=== PATIENT | female | born 1935 | race Caucasian/White ===

== ENCOUNTER 2016-09-13 18:44 | Inpatient (IN) | payer BC ==
--- NOTE | ~2016-09-13 | DS ---
Discharge Summary [facility] [address] [place]. [address] NAME: RUCHI CASTILLO : 37 STATUS : DIS IN PAT#: [id number] AGE: 80 ADM/REG DATE : 09/13/16 MR#: [id number] REPORT SERV DATE: 09/28/16 DICTATED BY: DIOGO WALL DATE: 09/27/16 REPORT STATUS : Draft TRANSCRIBED BY: MODL DATE: 09/27/16 ADMISSION DATE: 09/13/2016 DISCHARGE DATE: 09/27/2016 DISCHARGE DIAGNOSES: 1. Advanced dementia. 2. Generalized weakness. 3. Frequent falls at home. 4. Failure to thrive. 5. A recent T12 compression fracture as a result of one of the falls prior to hospitalization. CONSULTS: Dr. Lamar of Spine Surgery. PROCEDURES: None. HOSPITAL COURSE: This is a 80-year-old lady with a history of advanced dementia who was admitted to the hospital after she sustained multiple frequent falls related to generalized weakness. Upon admission, Spine Surgery was consulted who did not see any benefit in operation, and the patient was a poor candidate overall given her advanced dementia and poor functional status. Also, the patient really did not have any acute pain that necessitated further treatment of the T12 compression fracture. With her advanced dementia as well as generalized weakness, the patient was evaluated by Physical Therapy, and it was recommended the patient have two-person assist. Unfortunately, the patient did not have that kind of support at home, and the patient needed to be transferred to a alf facility. It took several days, but the patient was eventually accepted at [facility] where she will be discharged to continue rehab and to be continued to care for. Of note, the patient does not have any children and the patient's POA is the patient's niece. Otherwise, the patient's hospital course was uncomplicated, and the patient remained hemodynamically stable throughout the entire hospital stay. DISCHARGE MEDICATIONS: No changes. DISPOSITION: To [facility]. FOLLOWUP: Please follow up with PCP in the next two to four weeks. TIME SPENT: A total of 25 minutes was spent in coordinating this patient's discharge today. ELGIN/AME Diogo Wall MD Discharge Summary [address] [place]. [address] NAME: RUCHI CASTILLO : 37 STATUS : DIS IN PAT#: [id number] AGE: 80 ADM/REG DATE : 09/13/16 MR#: [id number] REPORT SERV DATE: 09/28/16 DICTATED BY: DIOGO WALL DATE: 09/27/16 REPORT STATUS : Draft TRANSCRIBED BY: MODRosa DATE: 09/27/16 / [id number] CC: MD MELVI Lord VICKI L
--- NOTE | ~2016-09-13 | CN ---
Consultation Report [facility] [address] [place]. [address] NAME: RUCHI CASTILLO : 37 STATUS : ADM Byron PAT#: [id number] AGE: 80 ADM/REG DATE : 09/13/16 MR#: [id number] REPORT SERV DATE: 09/14/16 DICTATED BY: JOHN ANAYA DATE: 09/14/16 REPORT STATUS : Draft TRANSCRIBED BY: MODL DATE: 09/14/16 CONSULTATION DATE OF CONSULTATION: REFERRING PHYSICIAN: Nikolay Joe M.D. CHIEF COMPLAINT: Back pain. HISTORY OF PRESENT ILLNESS: This is a 80-year-old female, who has significant dementia and behavioral abnormalities for which I have been asked to see related to back pain. The history is completely taken from the H and P in the chart from Dr. Nikolay Joe. He had obtained some history from the family including the daughter. I have no family in the room to be able to take history. Because of her history of dimension and behavior problems, her history would not be reliable, thus, I am making all my determinations based on the information available and the chart. The chart has been reviewed in its entirety. It should also be noted that there are no x-rays of any kind, plain x-ray or any advanced imaging such as the CT or MRI to review. From the H and P, there was a history of a fall sometime between possibly 08/29/2016 or 08/31/2016, in which the patient fell backwards. The patient was seen at [facility] in [place] and the ER was told there was a T12 compression fracture, and was told to use a brace, and ultimately, the patient has not had a brace. The patient has had increased amounts of pain that is at least according to history in the chart. I am not able to ascertain the functionality of the patient just from standing, walking, and activity levels. The chart again has been reviewed including the H and P, see that for detail. ASSESSMENT: History of a T12 compression fracture. RECOMMENDATIONS: Based on all the information I have available to me, physical exam is not completed as she would not participate at all. She has been noted to spontaneously move all four extremities, but she gets very agitated with any attempted to try to check reflexes. Thus, essentially no exam was performed. At this time, there is a history of T12 compression fracture. If this is found to be true on plain x-ray, and/or CT/MRI, then the patient could be a possible candidate for a kyphoplasty under local anesthetic, but certainly with her history of dementia and behavior problems, she is not a good candidate for general anesthesia, and the procedure as I would normally perform. Thus, I am not recommending any surgery at this time. I will sign off and ask the interventional Radiology Department to evaluate and see if they feel that she is a reasonable candidate for a local kyphoplasty. Consultation Report [facility] [address] [place]. [address] NAME: RUCHI CASTILLO : 37 STATUS : ADM Byron PAT#: [id number] AGE: 80 ADM/REG DATE : 09/13/16 MR#: [id number] REPORT SERV DATE: 09/14/16 DICTATED BY: JOHN ANAYA DATE: 09/14/16 REPORT STATUS : Draft TRANSCRIBED BY: AME DATE: 09/14/16 /AME John Anaya D.O. / [id number] CC: MD MELVI Lord VICKI L
--- NOTE | ~2016-09-13 | IDS ---
Interim Discharge Summary [facility] [address] [place]. [address] NAME: RUCHI CASTILLO : 39 STATUS : ADM IN [facility]#: [id number] AGE: 80 ADM/REG DATE : 09/13/16 MR#: [id number] REPORT SERV DATE: 09/23/16 DICTATED BY: JACKIE KAPLAN DATE: 09/23/16 REPORT STATUS : Draft TRANSCRIBED BY: MODL DATE: 09/23/16 ADMISSION DATE: 09/13/2016 DISCHARGE DATE: CURRENT HOSPITAL DIAGNOSES: 1. Dementia, advanced. 2. Compression fracture. 3. History of urinary tract infections. CONSULTATIONS: Dr. Lamar. PROCEDURES: None. CURRENT PHYSICAL FINDINGS AND HISTORY OF PRESENT ILLNESS: Please see initial H and P by Dr. Joe. In brief, the patient was having advancing dementia problems at home. Complaints of pain and was brought in for evaluation. Initial vital signs showed a blood pressure of 105/76. The patient has not had any fevers during her hospital stay. She presented with 97.9. She has had no tachycardia or hypoxia. LABORATORY DATA: Initial lab work showed a potassium of 3.4, which was corrected, creatinine of 137, which was corrected. A white count of 11, which corrected. No significant anemia and a normal urinalysis. The patient was admitted. Home medications were reviewed. Reasonable pain medications were given. Orthopedic consultation was requested. Her hydrochlorothiazide was held. Some mild IV fluids were given initially for the mild renal insufficiency, and Dr. Bowman initially was her physician. She was having urinary retention, so Mukherjee was placed. Her IV fluids were held. Case management was consulted, some mild sedation was required. I took over care on 09/17/2016. Ativan was discontinued. Catheter was discontinued with bladder scans followed. She did get several interventions for bowel movement, which was positive. Case management attempted to find her placement is currently pending at this time. PT continues to work with her. However, she is requiring two people assist. I did discuss her home situation with her caregivers and they do not feel that they can safely manage her at home with dementia and physical impairments. Placement is currently pending. We will check a.m. lab. Continue to monitor her bowel and bladder output and monitor her blood pressure. ÁLVAROF/NAHUNL Jackie Kaplan M.D. / [id number] CC: Jackie Kaplan M.D. Interim Discharge Summary [address] [address] NAME: RUCHI CASTILLO : 37 STATUS : ADM IN PAT#: [id number] AGE: 80 ADM/REG DATE : 09/13/16 MR#: [id number] REPORT SERV DATE: 09/23/16 DICTATED BY: JACKIE KAPLAN DATE: 09/23/16 REPORT STATUS : Draft TRANSCRIBED BY: MODL DATE: 09/23/16 Brianne Granda
--- NOTE | ~2016-09-13 | HP ---
History And Physical [address] [place]. [address] NAME: RUCHI CASTILLO : 37 STATUS : ADM Byron PAT#: [id number] AGE: 80 ADM/REG DATE : 09/13/16 MR#: [id number] REPORT SERV DATE: 09/14/16 DICTATED BY: LYDIA MYLES DATE: 09/14/16 REPORT STATUS : Draft TRANSCRIBED BY: MODL DATE: 09/14/16 DATE OF ADMISSION: 09/13/2016 CHIEF COMPLAINT: A 80-year-old female presenting with recent T12 compression fracture, increasing pain, and progression of dementia with behavioral problems. HISTORY OF PRESENTING ILLNESS: The patient's history was obtained through an interview with the patient and her daughter. Around the beginning of the month, perhaps 08/29/2016 or 08/31/2016, the patient had a fall. She simply lost her balance and collapsed to the ground hitting her backside and back. She went to [facility] and was diagnosed with T12 compression fracture. The patient was advised to be placed in a back brace and try physical therapy, and discharged from the emergency department. Despite this recommendation, the patient has been unable to tolerate a back brace because of dementia and agitation, and she has not participated with physical therapy. In fact, her pain has only increased over these last few weeks. She also describes pain now radiating to her stomach, chest, knees, but it is thought that all this pain emanates from her initial fracture to her spine. It finally got to the point today where she could not even walk. She has had increasing dementia issues with confusion, agitation, and combativeness. She has had near syncope at times and apparently lightheadedness. A very poor appetite now. No nausea or vomiting. She has been grimacing as if she is in pain, but is unable to localize or describe quality or severity of pain. No shortness of breath, but does have chronic cough. No fevers or chills. No nausea or vomiting. REVIEW OF SYSTEMS: Otherwise, a 14-point review of systems was obtained and was negative. PAST MEDICAL HISTORY: 1. Alzheimer's dementia. 2. Hypertension. 3. Urinary tract infections. 4. T12 compression fracture. 5. Gastroesophageal reflux disorder. 6. Anemia. History And Physical [address] [place]. [address] NAME: RUCHI CASTILLO : 37 STATUS : ADM Byron PAT#: [id number] AGE: 80 ADM/REG DATE : 09/13/16 MR#: [id number] REPORT SERV DATE: 09/14/16 DICTATED BY: LYDIA MYLES DATE: 09/14/16 REPORT STATUS : Draft TRANSCRIBED BY: MODRosa DATE: 09/14/16 7. Shingles. 8. Possible cardiac disease. 9. Elevated cholesterol. PAST SURGICAL HISTORY: Right hip replacement and hysterectomy. ALLERGIES: NO KNOWN DRUG ALLERGIES. SOCIAL HISTORY: No tobacco abuse. No alcohol abuse. The last 10 months has been living with her daughter. Has only one daughter. She has been a for about 10 years. Lives in [place], [place]. FAMILY HISTORY: Mother and sister with Alzheimer's dementia. Father with coronary artery disease. Brother with throat cancer. Brother with leukemia. CURRENT MEDICATIONS: Include Fosamax weekly, Lipitor 40 mg p.o. daily, calcium and vitamin D, Aricept 10 mg p.o. daily, Lexapro 10 mg p.o. daily, iron supplement, hydrochlorothiazide 25 mg p.o. daily, melatonin 10 mg p.o. q.h.s., Namenda 10 mg p.o. b.i.d., omeprazole 40 mg p.o. daily, Seroquel 25 mg p.o. daily. PHYSICAL EXAMINATION: VITAL SIGNS: Temperature 97.9, pulse 87, blood pressure 105/76, respiratory rate 16, O2 saturation 95% on room air. GENERAL: An ill-appearing female, quite agitated and uncontrolled in her dementia. She is irritable and sometimes combative here in the emergency department. HEENT: Pupils equal, round, and reactive to light. No conjunctival pallor. No scleral icterus. Nares are patent. Oropharynx is clear of obstruction. Dry mucous membranes. NECK: Trachea midline. No thyromegaly. LYMPH: No cervical lymphadenopathy. No supraclavicular lymphadenopathy. RESPIRATORY: Clear to auscultation at bases. No wheezes, rales, or rhonchi. Normal respiratory effort. CARDIOVASCULAR: Regular rate and rhythm. No murmurs, rubs, or gallops. No extremity edema is appreciated. ABDOMEN: Soft, nontender, nondistended. Normal bowel sounds auscultated throughout. No organomegaly. DERMATOLOGICAL: Warm and dry extremities. No pallor, no cyanosis. PSYCHIATRIC: Animated affect. Combative and irritable. Disoriented x3, alert though. LABORATORY DATA: White blood cell count 11, hemoglobin 14, hematocrit 42, platelets 218. Sodium 138, potassium 3.4, chloride 97, bicarb 33, BUN 21, creatinine 1.37 from baseline creatinine of 0.87, glucose 109. Urinalysis shows no evidence of infection, but 8 hyaline casts. Liver enzymes within normal limits. Troponin negative. STUDIES: 1. Chest x-ray by my own evaluation shows no acute cardiopulmonary process. 2. EKG by my own evaluation shows sinus rhythm, left atrial abnormality, left ventricular hypertrophy. History And Physical [address] [address] NAME: RUCHI CASTILLO : 37 STATUS : ADM Byron PAT#: [id number] AGE: 80 ADM/REG DATE : 09/13/16 MR#: [id number] REPORT SERV DATE: 09/14/16 DICTATED BY: LYDIA MYLES DATE: 09/14/16 REPORT STATUS : Draft TRANSCRIBED BY: MODRosa DATE: 09/14/16 ASSESSMENT AND PLAN: 1. T12 compression fracture. Recheck an x-ray of the spine. Obtain Orthopedic consult to determine if the patient is appropriate for kyphoplasty? 2. Dementia with behavioral problems. Continue home medications. Provide a sitter. Obtain a Case Management evaluation, as the patient may need to disposition to rehab or penitentiary facility? 3. Acute kidney injury. Place on IV fluids. Hold hydrochlorothiazide. KPL/MODL Lydia Myles M.D. / [id number] CC: MD JANET Lord
[2016-09-14 00:59] LABS: BASOPHILS 0.2 %; BASOPHILS ABSOLUTE 0.02 10/3/uL (0.0-0.16); EOSINOPHILS 1.4 %; EOSINOPHILS ABSOLUTE 0.15 10/3/uL (0.0-0.53); ER CBC TAT 0 Hrs 05 Mins; HEMATOCRIT 42.4 % (36.0-48.0); HEMOGLOBIN 14.4 g/dL (12.0-16.0); IMMATURE GRANULOCYTES 0.4 %; IMMATURE GRANULOCYTES ABSOLUTE 0.04 10/3/uL (0.0-0.11); LYMPHOCYTES 17.6 %; LYMPHOCYTES ABSOLUTE 1.93 10/3/uL (0.67-4.30); MANUAL DIFF NO %; MEAN CORPUSCULAR VOLUME 97.2 fL (80-100); MEAN PLATELET VOLUME 11.9 fL (9.2-13.0); MONOCYTES 8.3 %; MONOCYTES ABSOLUTE 0.91 10/3/uL (0.21-1.20); NEUTROPHILS 72.1 %; NEUTROPHILS ABSOLUTE 7.93 10/3/uL (2.02-8.40); PLATELET COUNT 218 10/3/uL (150-400); RBC DISTRIBUTION WIDTH 13.6 % (12.0-16.0); RED CELL COUNT 4.36 10/6/uL (4.0-5.6)
[2016-09-14 01:19] LABS: ALBUMIN 3.1 G/DL (3.5-5.0); CALCIUM, SERUM 8.5 MG/DL (8.5-10.4); CO2 (CARBON DIOXIDE) 33 MMOL/L (24-34); POTASSIUM, SERUM 3.4 MMOL/L (3.5-5.3); SGPT(ALT) 21 U/L (5-65); TOTAL BILIRUBIN 0.5 MG/DL (0-1.2); TROPONIN I <0.02 NG/ML (<0.05)
[2016-09-14 01:24] LABS: A/G RATIO 0.8 (0.7-1.9); ALKALINE PHOSPHATASE 167 U/L (45-117); BUN (BLOOD UREA NITROGEN) 21 MG/DL (6-23); CHLORIDE, SERUM 97 MMOL/L (96-112); CREATININE 1.37 MG/DL (0.55-1.02); GFR AFRICAN AMERICAN 43 ML/MIN (>=60); GFR NON AFRICAN AMERICAN 37 ML/MIN (>=60); GLOBULIN 3.9 G/DL (2.5-4.1); GLUCOSE, SERUM 109 MG/DL (60-99); SODIUM, SERUM 138 MMOL/L (135-148)
[2016-09-14 01:25] LABS: SGOT(AST) 26 U/L (5-40)
[2016-09-14 03:12] LABS: ASCORBIC ACID (UR NOT ORDER) NEG (NEG); BILIRUBIN, URINE NEGATIVE (NEG); ER URINALYSIS TAT 0 Hrs 00 Mins; KETONE, URINE NEGATIVE (NEG); LEUKOCYTE ESTERASE(NOT OR NEG (NEG); NITRITE (URINE) NEG (NEG); WBC (NOT ORDERED) (RFLEX) 1 (0-5)
[2016-09-14] MEDS ORDERED: HYDROCHLOROT25 MG PO (03:30)
[2016-09-14] MEDS ORDERED: FOSAMAX70 MG PO (03:30)
[2016-09-14] MEDS ORDERED: PRILOSEC40 MG PO (03:30)
[2016-09-14] MEDS ORDERED: ARICEPT10 PO (03:30)
[2016-09-14] MEDS ORDERED: LIPITOR40 PO (03:30)
[2016-09-14] MEDS ORDERED: FERROUS SULF325 M1 PO (03:30)
[2016-09-14] MEDS ORDERED: MELATONIN10 M2 PO (03:31)
[2016-09-14] MEDS ORDERED: LEXAPRO10 PO (03:31)
[2016-09-14] MEDS ORDERED: SEROQUEL25 PO (03:31)
[2016-09-14] MEDS ORDERED: NAMENDA10 MG PO (03:31)
[2016-09-14] MEDS ORDERED: CALTRA600D PO (03:32)
[2016-09-14 12:10] LABS: ALBUMIN 2.7 G/DL (3.5-5.0); BUN (BLOOD UREA NITROGEN) 20 MG/DL (6-23); CALCIUM, SERUM 7.7 MG/DL (8.5-10.4); CHLORIDE, SERUM 101 MMOL/L (96-112); CO2 (CARBON DIOXIDE) 31 MMOL/L (24-34); GLUCOSE, SERUM 99 MG/DL (60-99); POTASSIUM, SERUM 3.4 MMOL/L (3.5-5.3); SGOT(AST) 18 U/L (5-40); SGPT(ALT) 16 U/L (5-65); SODIUM, SERUM 139 MMOL/L (135-148); TOTAL BILIRUBIN 0.8 MG/DL (0-1.2); TOTAL PROTEIN 5.8 G/DL (6.0-8.5)
[2016-09-14 12:11] LABS: A/G RATIO 0.9 (0.7-1.9); ALKALINE PHOSPHATASE 147 U/L (45-117); CREATININE 0.85 MG/DL (0.55-1.02); GFR AFRICAN AMERICAN 76 ML/MIN (>=60); GFR NON AFRICAN AMERICAN 66 ML/MIN (>=60); GLOBULIN 3.1 G/DL (2.5-4.1)
[2016-09-18 06:02] LABS: BASOPHILS 0.4 %; BASOPHILS ABSOLUTE 0.03 10/3/uL (0.0-0.16); EOSINOPHILS 3.8 %; EOSINOPHILS ABSOLUTE 0.32 10/3/uL (0.0-0.53); HEMATOCRIT 43.2 % (36.0-48.0); IMMATURE GRANULOCYTES 0.1 %; IMMATURE GRANULOCYTES ABSOLUTE 0.01 10/3/uL (0.0-0.11); LYMPHOCYTES 25.5 %; LYMPHOCYTES ABSOLUTE 2.12 10/3/uL (0.67-4.30); MANUAL DIFF NO %; MEAN CORPUS HGB CONC 32.4 g/dL (32.0-36.0); MEAN CORPUSCULAR HEMOGLOB 32.9 pg (26.0-34.0); MEAN CORPUSCULAR VOLUME 101.4 fL (80-100); MEAN PLATELET VOLUME 11.4 fL (9.2-13.0); MONOCYTES 7.1 %; MONOCYTES ABSOLUTE 0.59 10/3/uL (0.21-1.20); NEUTROPHILS 63.1 %; NEUTROPHILS ABSOLUTE 5.26 10/3/uL (2.02-8.40); PLATELET COUNT 180 10/3/uL (150-400); RBC DISTRIBUTION WIDTH 13.3 % (12.0-16.0); RED CELL COUNT 4.26 10/6/uL (4.0-5.6); WHITE BLOOD CELLS 8.3 10/3/uL (4.5-10.5)
[2016-09-18 06:19] LABS: BUN (BLOOD UREA NITROGEN) 20 MG/DL (6-23); CALCIUM, SERUM 8.1 MG/DL (8.5-10.4); CHLORIDE, SERUM 101 MMOL/L (96-112); CO2 (CARBON DIOXIDE) 30 MMOL/L (24-34); CREATININE 0.73 MG/DL (0.55-1.02); GFR AFRICAN AMERICAN 91 ML/MIN (>=60); GFR NON AFRICAN AMERICAN 79 ML/MIN (>=60); GLUCOSE, SERUM 86 MG/DL (60-99); SODIUM, SERUM 140 MMOL/L (135-148)
[2016-09-18 06:20] LABS: POTASSIUM, SERUM 4.5 MMOL/L (3.5-5.3)
[2016-09-24 05:28] LABS: BASOPHILS 0.3 %; BASOPHILS ABSOLUTE 0.02 10/3/uL (0.0-0.16); EOSINOPHILS 5.3 %; EOSINOPHILS ABSOLUTE 0.38 10/3/uL (0.0-0.53); HEMOGLOBIN 12.4 g/dL (12.0-16.0); IMMATURE GRANULOCYTES 0.1 %; IMMATURE GRANULOCYTES ABSOLUTE 0.01 10/3/uL (0.0-0.11); LYMPHOCYTES 26.8 %; LYMPHOCYTES ABSOLUTE 1.91 10/3/uL (0.67-4.30); MEAN CORPUS HGB CONC 33.8 g/dL (32.0-36.0); MEAN PLATELET VOLUME 11.2 fL (9.2-13.0); MONOCYTES 7.6 %; MONOCYTES ABSOLUTE 0.54 10/3/uL (0.21-1.20); NEUTROPHILS 59.9 %; NEUTROPHILS ABSOLUTE 4.28 10/3/uL (2.02-8.40); PLATELET COUNT 171 10/3/uL (150-400); RBC DISTRIBUTION WIDTH 13.7 % (12.0-16.0); RED CELL COUNT 3.76 10/6/uL (4.0-5.6); WHITE BLOOD CELLS 7.1 10/3/uL (4.5-10.5)
[2016-09-24 05:29] LABS: HEMATOCRIT 36.7 % (36.0-48.0); MANUAL DIFF NO %; MEAN CORPUSCULAR VOLUME 97.6 fL (80-100)
[2016-09-24 05:41] LABS: BUN (BLOOD UREA NITROGEN) 21 MG/DL (6-23); CALCIUM, SERUM 8.6 MG/DL (8.5-10.4); CHLORIDE, SERUM 100 MMOL/L (96-112); CO2 (CARBON DIOXIDE) 30 MMOL/L (24-34); CREATININE 0.86 MG/DL (0.55-1.02); GFR AFRICAN AMERICAN 75 ML/MIN (>=60); GFR NON AFRICAN AMERICAN 65 ML/MIN (>=60); GLUCOSE, SERUM 94 MG/DL (60-99); SODIUM, SERUM 138 MMOL/L (135-148)
== END 2016-09-27 18:28 | DRG 552 ==
LOC: ER 18:44 → 4SO 23:59
PROVIDERS: Emergency Medicine; Hospitalist; Internal Medicine
DX: S22.088A Other fracture of T11-T12 vertebra, initial encounter for closed fracture (principal); N17.9 Acute kidney failure, unspecified; F02.81 Dementia in other diseases classified elsewhere, unspecified severity, with behavioral disturbance; F05 Delirium due to known physiological condition; W18.39XA Other fall on same level, initial encounter; G30.9 Alzheimer's disease, unspecified; I10 Essential (primary) hypertension; K21.9 Gastro-esophageal reflux disease without esophagitis; Z96.641 Presence of right artificial hip joint; Z87.440 Personal history of urinary (tract) infections; R33.8 Other retention of urine; R53.1 Weakness; Z91.81 History of falling; R62.7 Adult failure to thrive
CPT/HCPCS: 71010; 72080; 80048; 80053; 81001; 83735; 84484; 85025; 93005; 97110-GP; 97116-GP; 97161-GP; 97165-GO; 97535-GO; 99285; A9270-GY